=== PATIENT | male | born 1970 | race Caucasian/White ===

== ENCOUNTER 2021-07-01 18:11 | Emergency (ER) | payer BC ==
[2021-07-01 19:34] LABS: HEMOGLOBIN 11.8 gm/dl (14.0-17.5); RED BLOOD COUNT 4.5 M/UL (4.20-5.50)
[2021-07-01 20:04] LABS: BUN/CREATININE RATIO 21 (0-10)
[2021-07-01] MEDS ORDERED: AUGMENTIN 875-1 EACH PO (23:19)
== END 2021-07-01 23:32 | disposition home or self-care (01) ==
LOC: ER1 18:11
DX: R07.89 Other chest pain (principal); R91.1 Solitary pulmonary nodule; I10 Essential (primary) hypertension
CPT/HCPCS: 80053; 82550; 82553; 83874; 84484; 85025; 85652; 86140; 93005; 99285; Q9967

== ENCOUNTER → 2021-08-25 | Outpatient (CLI) | payer BC ==
[~2021-08-25] MED LIST: AUGMENTIN 875-1 EACH PO; NEXIUM PO
[2021-08-25 08:14] LABS: HEMOGLOBIN 12.5 gm/dl (14.0-17.5); RED BLOOD COUNT 4.69 M/UL (4.20-5.50); WHITE BLOOD COUNT 5.6 K/UL (4.5-11.0)
[2021-08-25 10:32] LABS: BUN/CREATININE RATIO 12 (0-10)
[2021-08-29 18:07] LABS: ASPERGILLUS FLAVUS Negative (Neg:<1:1); ASPERGILLUS FUMIGATUS Negative (Neg:<1:1); ASPERGILLUS NIGER Negative (Neg:<1:1)
== END ==
LOC: LAB 07:45 → CT 07:45
PROVIDERS: Internal Medicine Pulmonary Disease
DX: Z01.818 Encounter for other preprocedural examination (principal); J98.4 Other disorders of lung; R91.8 Other nonspecific abnormal finding of lung field; Z20.822 Contact with and (suspected) exposure to COVID-19
CPT/HCPCS: 36415; 71250; 80053; 85025; 85610; 85652; 86140; 86606; 86612; U0002

== ENCOUNTER → 2021-11-12 | Outpatient (CLI) | payer BC | LOC: KOH-I 10-25 13:30 | DX: R91.8 Other nonspecific abnormal finding of lung field (principal) | CPT/HCPCS: 71250 ==

== ENCOUNTER → 2021-11-30 | Day surgery (SDC) | payer BC | END | disposition home or self-care (01) | LOC: OR 06:06 | DX: J98.4 Other disorders of lung (principal); Z87.891 Personal history of nicotine dependence; Z20.822 Contact with and (suspected) exposure to COVID-19 | CPT/HCPCS: 71045; 76000; 87015; 87070; 87077; 87116; 87186; 87205; 87206; J2704; J3010 ==

== ENCOUNTER → 2021-12-31 | Outpatient (CLI) | payer BC | LOC: KOH-I 12-06 16:00 → CT 13:00 | DX: J15.212 Pneumonia due to Methicillin resistant Staphylococcus aureus (principal); R91.8 Other nonspecific abnormal finding of lung field | CPT/HCPCS: 71250 ==

== ENCOUNTER → 2022-05-23 | Outpatient (CLI) | payer BC | LOC: KOH-I 16:00 | DX: R91.8 Other nonspecific abnormal finding of lung field (principal) | CPT/HCPCS: 71250 ==